=== PATIENT | female | born 1945 | race Caucasian/White ===

== ENCOUNTER 2020-03-25 12:55 | Emergency (ER) | payer OTHER, SELFPAY ==
--- NOTE | 2020-03-25 13:29 | CT ---
Head CT without contrast 03/25/2020: Comparison: None HISTORY: Fall, trauma, pain TECHNIQUE: Axial CT imaging at 5 mm intervals from vertex through skull base without contrast FINDINGS: No intracranial hemorrhage, midline shift, mass effect, or ventricular enlargement. The visualized paranasal sinuses and mastoid air cells are well-aerated. No displaced calvarial fract ure. IMPRESSION: No intracranial hemorrhage or displaced calvarial fracture.
--- NOTE | 2020-03-25 13:34 | CT ---
CT cervical spine without contrast: 03/25/2020 COMPARISON: None available HISTORY: Injury, trauma, pain TECHNIQUE: Axial CT imaging at 2.5 mm intervals through the cervical spine without contrast. Coronal and sagittal reformatted imaging obtained. FINDINGS: The C1 ring appears intact. There is prominent degenerative change at the atlantoaxial inte rspace. The craniocervical junction, the dens, the occipital condyles, and the C1 to articulation demonstrate no acute findings. Disc space narrowing with mild posterior osteophyte formation noted at C3-4, C4-5, and C5-6. Prominen t multilevel anterior osteophyte formation noted at the C3-4 through C6-7 levels. Multilevel facet hypertrophy noted, left greater than right, most prominent at C3-4 and C6-7. There are emphysematous changes noted within the imaged portions of bilateral lung apices. No acute f racture or dislocation is noted. IMPRESSION: Prominent cervical spine degenerative change. No acute fracture or dislocation.
[2020-03-25] MEDS ORDERED: Morphine 4 MG/ML VIAL ONE ×2 (13:38→15:30)
[2020-03-25] MEDS ORDERED: cefTRIAXone\\ROCEPHIN 2 GM VIAL ONE (13:39)
[2020-03-25] MEDS ORDERED: Ondansetron PF 4 MG/2 ML Vial ONE (13:39)
[2020-03-25] MEDS ORDERED: Adacel (T-DAP) 0.5 ML SYRINGE ONE (13:39)
--- NOTE | 2020-03-25 13:47 | CT ---
CT Facial Bones WO Con History: Fall Comparison: None. Findings: Fracture through the left maxilla alveolar bone after cortex along the left central incisor , lateral incisor and canine with one cortex width anterior displacement. Nasal bones are intact. The medial orbital dash, lateral orbital dash, orbital floors and roofs are intact. Normal location of the temporomandibular joints. Upper cervical spine alignment is relatively maintained. Globes are intact. Nasal bones are intact. Rightward deviation of the osseous nasal septum. Zygoma and zygomatic arches are intact. Impression: Fracture the left maxilla buccal surface alveolar bone outer cortex through the left cent ral incisor, lateral incisor, and canine with one cortex width anterior displacement.
--- NOTE | 2020-03-25 15:22 | RAD ---
Radiograph left ankle 3 views: 03/25/2020 HISTORY: 74-year-old female with acute traumatic left ankle pain due to fall. COMPARISON: None FINDINGS: 2 of the views are AP views. There is no oblique view. There is a lateral view. This is, in effect, a two-view study. There is a spiral fracture of the upper portion of the lateral malleolus reaching the superior latera l corner of the ankle mortise medially, and lateral fracture components superior to that. There is minimal lateral displacement of distal fragment. No significant angulation. Mild unevenness of latera l ankle mortise mostly due to degenerative changes. Talar dome is maintained. Medial and posterior malleoli are intact. IMPRESSION: Acute, traumatic, minimally displaced spiral fracture of lateral malleolus, Daugherty classification type B.
[2020-03-25] MEDS ORDERED: Acetaminophen 500 MG TAB ONE (15:36)
== END 2020-03-25 15:50 | disposition home or self-care (01) ==
LOC: ERS 12:55
DX: S02.40DB Maxillary fracture, left side, initial encounter for open fracture (principal); E78.5 Hyperlipidemia, unspecified; I10 Essential (primary) hypertension; W01.0XXA Fall on same level from slipping, tripping and stumbling without subsequent striking against object, initial encounter
CPT/HCPCS: 70450; 70486; 72125; 90471; 90715; 96365; 96375; J0696; J2270; J2405